=== PATIENT | male | born 1995 | race Caucasian/White ===

== ENCOUNTER 2020-10-17 12:07 | Emergency (ER) | payer SELFPAY ==
[~2020-10-17] VITALS: Ht 170.2 cm; Wt 62.1 kg
[2020-10-17 13:31] VITALS: BP 119/79
--- NOTE | 2020-10-17 13:33 | NUR ---
PT ARRIVED WITH COMPLAINTS OF L MOUTH ABSCESS THAT IS BLEEDING. PT REPORTS THAT HE HAS SURGERY SCHEDULED FOR 11/01 BUT WAS UNSURE IF HE SHOULD CONTINUE HIS ANTIBIOTICS. THIS RN REINFORCED THE IMPORTANCE OF ANTIBIOTIC COMPLICANCE. PLACED ON BP AND O2 MONITORS, DALLIN ELDER.
== END 2020-10-17 14:57 | disposition home or self-care (01) ==
LOC: ED 12:43
DX: K04.6 Periapical abscess with sinus (principal); Z72.0 Tobacco use
CPT/HCPCS: 99283